=== PATIENT | female | born 1970 | race African-American/Black ===

== ENCOUNTER 2017-04-26 19:22 | Emergency (ER) | payer MEDICARE ==
[~2017-04-26] VITALS: Ht 170.2 cm; Wt 88.0 kg
[~2017-04-26 19:22] MED LIST: ADVAIR HF1 IN; ADVAIR HF2 IN; ALBUTEROL2.5 MG/3 M INH; AMOXICILLIN500 MG OR; AUGMENTIN875TAB PO; BUPROPION150 MG PO; CEPHALEXIN500 MG OR; CIPROFLOXACN500 MG PO; COZAAR25 MG OR; ESTRACE1 MG OR; ESTRADIOL0.1 MG TD; ESTRADIOL1 MG PO; LIPITOR20 MG PO; LIPITOR80 MG PO; METROGEL VAG0.75 % VA; MUCINEX600 MG PO; NAPROSYN500 MG PO; PREDNISONE20 MG PO; PROVENTIL0.083 % IN; PYRIDIUM200 MG PO; SINGULAIR10 MG OR; SPIRIVA PO; SYMBICORT1 AE1; SYMBICORT1 AE1 IN; TESSALON PER100 MG OR; TESSALON PER100 MG PO; WELLBUTRIN150 M1 OR; ZANTAC150 MG OR; ZITHROMAX500 MG OR
[2017-04-26 21:29] LABS: INFLUENZA A NONE DETECTED (NONE DETECT); INFLUENZA B NONE DETECTED (NONE DETECT)
[2017-04-26] MEDS ORDERED: AMOXICILLIN500 MG PO (21:30)
[2017-04-26 21:37] VITALS: BP 135/87
== END 2017-04-26 21:47 | disposition home or self-care (01) ==
LOC: ED 19:22
PROVIDERS: Emergency Medicine
DX: J02.9 Acute pharyngitis, unspecified (principal)

== ENCOUNTER 2019-06-27 | Emergency (ER) | payer MEDICARE ==
[~2019-06-27] MED LIST changes: +AMOXICILLIN500 MG PO
[2019-06-27] MEDS ORDERED: SYMBICORT 80-4.5MCG IN (23:33)
[2019-06-27 23:45] LABS: HEMATOCRIT 42.1 % (37.0-47.0); HEMOGLOBIN 13.5 g/dl (12.0-16.0); IMMATURE GRANULOCYTES 0.2 % (0.0-5.0); MEAN CELL VOLUME 85.7 fL CALC (80.0-100.0); MEAN CORPUSCULAR HGB 27.5 pG CALC (26.0-32.0); MEAN CORPUSCULAR HGB CONC 32.1 g/dL CAL (32.0-36.0); NEUT# 3.43 thou/uL (2.00-7.15); RED BLOOD COUNT 4.91 mill/uL (4.20-5.60); RED CELL DISTRI WIDTH 14.6 % (11.5-15.5)
[2019-06-27 23:56] LABS: ACT PARTIAL THROMBO TIME 26.3 SECONDS (20.0-32.5); INTERNATIONAL NORMALIZED RATIO 0.9 RATIO (0.7-1.3); PROTHROMBIN TIME 9.5 SECONDS (9.0-12.5)
[2019-06-28 00:07] LABS: MYOGLOBIN 40 ng/mL (0 - 62)
[2019-06-28 00:27] LABS: ALBUMIN 4.6 g/dL (3.2-5.0); ALKALINE PHOSPHATASE 70 u/l (38-126); ANION GAP 12 (6-22 (CALC)); BUN 15 mg/dL (7-17); BUN/CREATININE RATIO 16 (12-20 (CALC)); CARBON DIOXIDE 26 mmol/l (22-30); CHLORIDE 106 mmol/l (95-108); GFR 59 ML/MIN (>=60 (CALC)); GFR FOR AFR.AMER. > 60 ML/MIN (>=60 (CALC)); POTASSIUM 3.4 mmol/l (3.5-5.1); SODIUM 141 mmol/l (137-146)
[2019-06-28 00:30] LABS: BILIRUBIN, TOTAL 0.6 mg/dL (0.0-1.4); SGOT/AST 44 u/l (14-36)
[2019-06-28] MEDS ORDERED: ROBAXIN-750750 MG PO ×2 (02:06)
[2019-06-28] MEDS ORDERED: PREDNISONE20 MG PO ×2 (02:06)
[2019-06-28] MEDS ORDERED: ULTRAM50 M1 PO (02:06)
== END 2019-06-28 02:49 | disposition home or self-care (01) ==
PROVIDERS: Emergency Medicine
DX: M54.12 Radiculopathy, cervical region (principal); I10 Essential (primary) hypertension

== ENCOUNTER 2019-08-21 17:24 | Emergency (ER) | payer MEDICARE ==
[~2019-08-21 17:24] MED LIST changes: +ROBAXIN-750750 MG PO; +SYMBICORT 80-4.5MCG IN; +ULTRAM50 M1 PO
[2019-08-21 18:23] VITALS: BP 159/90
== END 2019-08-21 18:18 | disposition home or self-care (01) ==
LOC: ED 17:24
PROC: 0HQFXZZ Repair Right Hand Skin, External Approach (ICD-10-PCS; principal; 2019-08-21)
DX: S61.210A Laceration without foreign body of right index finger without damage to nail, initial encounter (principal); S61.212A Laceration without foreign body of right middle finger without damage to nail, initial encounter; I10 Essential (primary) hypertension; W26.8XXA Contact with other sharp object(s), not elsewhere classified, initial encounter; Y93.89 Activity, other specified; Y92.009 Unspecified place in unspecified non-institutional (private) residence as the place of occurrence of the external cause

== ENCOUNTER 2019-10-25 08:20 | Emergency (ER) | payer MEDICARE, MEDICAID ==
[~2019-10-25] VITALS: Ht 170.2 cm; Wt 99.0 kg
[2019-10-25 09:05] LABS: HEMATOCRIT 42.1 % (37.0-47.0); HEMOGLOBIN 13.2 g/dl (12.0-16.0); IMMATURE GRANULOCYTES 0.3 % (0.0-5.0); MEAN CELL VOLUME 86.1 fL CALC (80.0-100.0); MEAN CORPUSCULAR HGB CONC 31.4 g/dL CAL (32.0-36.0); NEUT# 1.9 thou/uL (2.00-7.15); RED BLOOD COUNT 4.89 mill/uL (4.20-5.60); RED CELL DISTRI WIDTH 14.1 % (11.5-15.5)
[2019-10-25 09:28] LABS: ANION GAP 9 (6-22 (CALC)); BUN 11 mg/dL (7-17); BUN/CREATININE RATIO 14 (12-20 (CALC)); CARBON DIOXIDE 28 mmol/l (22-30); CHLORIDE 107 mmol/l (95-108); CREATININE 0.8 mg/dL (0.5-1.0); GFR > 60 ML/MIN (>=60 (CALC)); GFR FOR AFR.AMER. > 60 ML/MIN (>=60 (CALC)); POTASSIUM 3.4 mmol/l (3.5-5.1); SODIUM 140 mmol/l (137-146)
[2019-10-25 10:53] VITALS: BP 164/68
== END 2019-10-25 11:00 | disposition home or self-care (01) ==
LOC: ED 08:20
PROVIDERS: Family Medicine
DX: G43.909 Migraine, unspecified, not intractable, without status migrainosus (principal); I10 Essential (primary) hypertension

== ENCOUNTER 2019-10-26 05:13 | Emergency (ER) | payer MEDICARE, MEDICAID ==
[~2019-10-26] VITALS: Ht 170.2 cm; Wt 99.0 kg
[2019-10-26 06:15] VITALS: BP 157/74
== END 2019-10-26 06:24 | disposition home or self-care (01) ==
LOC: ED 05:13
DX: I10 Essential (primary) hypertension (principal); G43.909 Migraine, unspecified, not intractable, without status migrainosus

== ENCOUNTER 2020-01-31 06:58 | Day surgery (SDC) | payer MEDICARE ==
[~2020-01-31] VITALS: Ht 170.2 cm; Wt 86.2 kg
[~2020-01-31 06:58] MED LIST changes: -BUPROPION150 MG PO; +CLONAZEP ODT1 MG PO; +HYDROCHLOROTH12.5 M1 PO; +METOPROL TAR25 M1 PO; +SPIRIVA HANDIH18 MCG; +TROKENDI XR100 MG PO; +VENLAFAXINE HCL75 M2 PO; +WELLBUTRIN XL300 MG PO
[2020-01-31 10:57] VITALS: BP 121/76
== END 2020-01-31 09:50 | disposition home or self-care (01) ==
LOC: ORM 06:58
PROVIDERS: ATTEND Surgery
PROC: 0D8R3ZZ Division of Anal Sphincter, Percutaneous Approach (ICD-10-PCS; principal; 2020-01-31)
DX: K60.2 Anal fissure, unspecified (principal); K64.8 Other hemorrhoids; K64.4 Residual hemorrhoidal skin tags; I10 Essential (primary) hypertension; J45.909 Unspecified asthma, uncomplicated; F41.9 Anxiety disorder, unspecified; F32.9 Major depressive disorder, single episode, unspecified; Z20.828 Contact with and (suspected) exposure to other viral communicable diseases
CPT/HCPCS: C9290

== ENCOUNTER 2020-10-28 23:08 | Emergency (ER) | payer MEDICARE ==
[2020-10-28 23:48] LABS: HEMATOCRIT 41.4 % (37.0-47.0); HEMOGLOBIN 13.4 g/dl (12.0-16.0); IMMATURE GRANULOCYTES 0.5 % (0.0-5.0); MEAN CELL VOLUME 87.5 fL CALC (80.0-100.0); MEAN CORPUSCULAR HGB 28.3 pG CALC (26.0-32.0); MEAN CORPUSCULAR HGB CONC 32.4 g/dL CAL (32.0-36.0); NEUT# 3.2 thou/uL (2.00-7.15); RED BLOOD COUNT 4.73 mill/uL (4.20-5.60); RED CELL DISTRI WIDTH 14.6 % (11.5-15.5)
[2020-10-29 00:02] LABS: ALBUMIN 4.5 g/dL (3.2-5.0); ALKALINE PHOSPHATASE 62 u/l (38-126); ANION GAP 12 (6-22 (CALC)); BILIRUBIN, TOTAL 0.6 mg/dL (0.0-1.4); BUN 14 mg/dL (7-17); BUN/CREATININE RATIO 16 (12-20 (CALC)); CARBON DIOXIDE 28 mmol/l (22-30); CHLORIDE 101 mmol/l (95-108); CREATININE 0.8 mg/dL (0.5-1.0); GFR > 60 ML/MIN (>=60 (CALC)); GFR FOR AFR.AMER. > 60 ML/MIN (>=60 (CALC)); POTASSIUM 3.3 mmol/l (3.5-5.1); SGOT/AST 31 u/l (14-36); SODIUM 137 mmol/l (137-146); TOTAL PROTEIN 7.8 g/dL (6.3-8.2)
[2020-10-29 00:14] LABS: MYOGLOBIN 38 ng/mL (0 - 62)
[2020-10-29 00:21] LABS: URINE BILIRUBIN - DIPSTICK NEGATIVE (NEGATIVE); URINE BLOOD DIPSTICK TRACE-INTACT (NEGATIVE); URINE COLOR YELLOW; URINE GLUCOSE - DIPSTICK NEGATIVE (NEGATIVE); URINE KETONE NEGATIVE (NEGATIVE); URINE LEUK ESTERASE TRACE (NEGATIVE); URINE NITRITE - DIPSTICK NEGATIVE (Negative); URINE PH 6.5 (4.5-8.0); URINE PROTEIN - DIPSTICK NEGATIVE (NEG-TRACE); URINE SPECIFIC GRAVITY <=1.005; URINE UROBILINOGEN - DIPSTICK 0.2 E.U./dL (0.2)
[2020-10-29] MEDS ORDERED: AMLODIPINE BESYL5 MG PO (00:49)
[2020-10-29 01:05] VITALS: BP 145/63
== END 2020-10-29 01:14 | disposition home or self-care (01) ==
LOC: ED 23:08
PROVIDERS: Family Medicine
DX: I10 Essential (primary) hypertension (principal); J45.909 Unspecified asthma, uncomplicated; F41.9 Anxiety disorder, unspecified; F32.9 Major depressive disorder, single episode, unspecified

== ENCOUNTER 2024-02-04 05:13 | Observation (INO) | payer MEDICARE ==
[~2024-02-04] VITALS: Ht 170.2 cm; Wt 95.0 kg
[2024-02-04] VITALS (19 sets, daily range): BP systolic 104–165; BP diastolic 45–80
[~2024-02-04 05:13] MED LIST changes: +ADVAIR HFA; +ALBUTERO1 IN; +AMLODIPINE BESYL5 MG PO; +BACLOFEN PO; +BUPROPION HCL150 MG PO; +LOSARTAN POTAS100 MG PO; +OMEGA XL; +PERCOCET 5/325M1 TAB PO; +PROTONIX20 M1 PO; -SINGULAIR10 MG OR; +SINGULAIR10 MG PO; +TRAZODONE50 MG PO; +VENTOLIN HFA108 MCG IN; +XANAX1 MG PO
[2024-02-04] MEDS ORDERED: ASPIRIN 81 MG/TAB PO ONE (05:40)
[2024-02-04] MEDS ORDERED: MORPHINE SULFATE 4 MG/ML VIAL IV ONE (05:40)
[2024-02-04] MEDS ORDERED: ONDANSETRON HCl 4 MG/2 ML SDV IV ONE (05:40)
[2024-02-04] MEDS ORDERED: NITROGLYCERIN 2% OINT UD 1 GM/PAK TD ONE (05:40)
[2024-02-04 06:25] LABS: ALBUMIN 4.2 g/dL (3.2-5.0); ALKALINE PHOSPHATASE 65 u/l (38-126); ANION GAP 14 (6-22 (CALC)); BASO% 0.6 % (0-3); BILIRUBIN, TOTAL 0.7 mg/dL (0.02-1.3); BUN 13 mg/dL (7-17); BUN/CREATININE RATIO 14 (12-20 (CALC)); CARBON DIOXIDE 26 mmol/l (22-30); CHLORIDE 107 mmol/l (95-108); CPK 160 u/l (30-135); CREATININE 0.9 mg/dL (0.5-1.0); ESTIMATED GFR 76 ML/MIN (>=90 (CALC)); HEMATOCRIT 42.7 % (37.0-47.0); HEMOGLOBIN 13.5 g/dl (12.0-16.0); LIPASE 131 u/l (23-300); LYMPH% 36.7 % (15-41); MAGNESIUM 2.2 mg/dL (1.6-2.3); MEAN CORPUSCULAR HGB 27.8 pG CALC (26.0-32.0); MEAN CORPUSCULAR HGB CONC 31.6 g/dL CAL (32.0-36.0); MONO% 6.6 % (2-13); NEUT# 1.89 thou/uL (2.00-7.15); NEUT% 54.1 % (42-76); RED BLOOD COUNT 4.85 mill/uL (4.20-5.60); RED CELL DISTRI WIDTH 14.2 % (11.5-15.5); SGOT/AST 32 u/l (14-36); SODIUM 143 mmol/l (137-146)
[2024-02-04 06:35] LABS: INTERNATIONAL NORMALIZED RATIO 0.9 RATIO (0.7-1.3)
[2024-02-04 06:42] LABS: D-DIMER 0.31 mg/L (0.19-0.60)
[2024-02-04 06:58] LABS: TSH, 3RD GENERATION 2.12 uIU/mL (0.47 - 4.68)
[2024-02-04] MEDS ORDERED: MAGNESIUM HYDROXIDE 30 ML UDC PO PRN (09:25)
[2024-02-04] MEDS ORDERED: ACETAMINOPHEN 325 MG/TAB PO PRN (09:25)
[2024-02-04] MEDS ORDERED: BUPROPION150 M3 PO (11:11)
[2024-02-04] MEDS ORDERED: BACLOFEN 10 MG/TAB PO PRN (11:15)
[2024-02-04] MEDS ORDERED: ALPRAZolam 1 MG/TAB PO PRN (11:20)
[2024-02-04] MEDS ORDERED: PANTOPRAZOLE SODIUM Sesquihydr 40 MG/TAB PO SCH (13:00)
[2024-02-04] MEDS ORDERED: FLUTICASONE/SALMETEROL 250 MCG/50 MCG PER DOSE INH IN SCH (13:00)
[2024-02-04] MEDS ORDERED: buPROPion HCL 150 MG TAB SR PO SCH ×2 (13:00→21:00)
[2024-02-04] MEDS ORDERED: methylPREDNISolone Sod Succ 40 MG/ML SDV IV ONE (13:05)
[2024-02-04] MEDS ORDERED: ENOXAPARIN SODIUM 40 MG/0.4 ML SYR SC SCH (21:00)
[2024-02-04] MEDS ORDERED: MONTELUKAST SODIUM 10 MG/TAB PO SCH (21:00)
[2024-02-04] MEDS ORDERED: ATORVASTATIN CALCIUM 40 MG/TAB PO SCH (21:00)
== END 2024-02-04 15:30 | disposition home or self-care (01) ==
LOC: ED 05:13 → ED-I 09:09 → ED 09:21 → MS2 09:22
PROVIDERS: Internal Medicine; ADMIT Internal Medicine; ATTEND Internal Medicine
DX: R07.9 Chest pain, unspecified (principal); M79.602 Pain in left arm; I10 Essential (primary) hypertension; E78.5 Hyperlipidemia, unspecified; J45.909 Unspecified asthma, uncomplicated; E66.9 Obesity, unspecified; F41.9 Anxiety disorder, unspecified; F32.A Depression, unspecified